=== PATIENT | male | born 1960 ===

== ENCOUNTER 2017-12-25 10:26 | Emergency (ER) | payer OTHER ==
[2017-12-25 10:39] VITALS: BP 124/87; PULSE 73; RESP 18; TEMP 98.6; O2SAT 96
--- NOTE | 2017-12-25 11:21 | C.PDOC ---
History Of Present Illness 57 year old male presents to the ED for evaluation of redness and blood in the right eye 4 days ago. Patient believes he may have rubbed his eyes too hard when they were itching. During visit patient notes his eye is itchy. Denies vision changes, discharge, and any other associated symptoms. Time Seen by Provider: 12/25/17 11:14 Chief Complaint (Nursing): Eye Problem History Per: Patient History/Exam Limitations: no limitations Onset/Duration Of Symptoms: Days Current Symptoms Are (Timing): Still Present Past Medical History Reviewed: Historical Data, Nursing Documentation, Vital Signs Vital Signs: Last Vital Signs Temp 98.6 F 12/25/17 10:38 Pulse 73 12/25/17 10:38 Resp 18 12/25/17 10:38 BP 124/87 12/25/17 10:38 Pulse Ox 96 12/25/17 10:38 - Medical History PMH: Kidney Stones Family History: States: Unknown Family Hx - Social History Hx Alcohol Use: No Hx Substance Use: No - Immunization History Hx Tetanus Toxoid Vaccination: No Hx Influenza Vaccination: No Hx Pneumococcal Vaccination: No Review Of Systems Constitutional: Negative for: Fever Eyes: Positive for: Redness (to the right eye and itching. ). Negative for: Vision Change, Eyelid Inflammation, Other (discharge to the right eye. ) ENT: Negative for: Ear Pain, Nose Congestion, Throat Pain Respiratory: Negative for: Cough Neurological: Negative for: Weakness, Numbness, Headache, Dizziness Physical Exam - Physical Exam Appears: Non-toxic, No Acute Distress Skin: Warm, Dry Head: Atraumatic, Normacephalic Eye(s): bilateral: Normal Inspection (Your xray was normal, no fracture. Please apply ice to area 15 minutes three times a day. Take Motrin as needed for pain every 6 hours, with food to not upset stomach. Follow up with orthopedic if pain persists over one week), PERRL, EOMI, right: Other (subconjunctival injection to right eye) Nose: Normal Neck: Normal ROM Chest: Symmetrical Neurological/Psych: Oriented x3, Normal Speech Gait: Steady ED Course And Treatment O2 Sat by Pulse Oximetry: 96 (RA) Pulse Ox Interpretation: Normal Progress Note: Patient stable for discharge home. Prescribed Ketotifen and Loratadine. Medical Decision Making Medical Decision Making: Impression: subconjunctival hemorrhage Dispo: Recommend antihistamine and will prescribe drops to use. Explain this condition will self resolve in time Disposition Counseled Patient/Family Regarding: Diagnosis, Need For Followup, Rx Given - Disposition Referrals: Stephen Rodriguez [Staff Provider] - Disposition: HOME/ ROUTINE Disposition Time: 11:22 Condition: GOOD Additional Instructions: Shawn medicamentos para la alergia diariamente. Aplicar 1 gota ambos ojos diariamente. seguimiento con especialista en ojos Prescriptions: Ketotifen Fumarate [Zaditor] 1 drop OU DAILY #1 bottle Loratadine 10 mg PO DAILY #30 tablet Instructions: Subconjunctival Hemorrhage Forms: [employer] (Polish) Print Language: MOROCCAN - POA Present On Arrival: None - Clinical Impression Clinical Impression: Subconjunctival hemorrhage, Allergic conjunctivitis - PA / [employer] SAL[employer] DIRECTOR / Resident Statement MD/DO has reviewed & agrees with the documentation as recorded. - Scribe Statement The provider has reviewed the documentation as recorded by the Scribe (Niurka Abarca) All medical record entries made by the Scribe were at my direction and personally dictated by me. I have reviewed the chart and agree that the record accurately reflects my personal performance of the history, physical exam, medical decision making, and the department course for this patient. I have also personally directed, reviewed, and agree with the discharge instructions and disposition.
== END 2017-12-25 11:37 | disposition home or self-care (01) ==
LOC: C.ER 10:26
DX: H11.31 Conjunctival hemorrhage, right eye (principal); H10.11 Acute atopic conjunctivitis, right eye